=== PATIENT | female | born 1970 | race Caucasian/White ===

== ENCOUNTER 2024-06-22 11:41 | Emergency (ER) | payer OTHER ==
[2024-06-22 12:05] VITALS: BP 129/79; PULSE 70; TEMP 98.5; BMI 33.3
[2024-06-22] MEDS ORDERED: FAMOTIDINE 20 MG/50 ML IVPB 20 MG/50 ML MG IVPB ONE (12:39)
[2024-06-22] MEDS ORDERED: DEXAMETHASONE SOD PHOSPHATE 10 MG/1 ML VIAL ONE (12:39)
[2024-06-22] MEDS: FAMOTIDINE 20 MG/50 ML IVPB 20 MG/50 ML MG IVPB ONE (12:52)
[2024-06-22] MEDS: DEXAMETHASONE SOD PHOSPHATE 10 MG/1 ML VIAL IVPUSH ONE (12:52)
[2024-06-22 14:19] VITALS: RESP 16
[2024-06-23 00:20] LABS: HIV INTERPRETATION NEGATIVE (NEGATIVE)
== END 2024-06-22 14:20 | disposition home or self-care (01) ==
LOC: JER 11:41 → JERFT 11:41
PROC: 3E033GC Introduction of Other Therapeutic Substance into Peripheral Vein, Percutaneous Approach (ICD-10-PCS; principal; 2024-06-22)
PROC: 3E033GC Introduction of Other Therapeutic Substance into Peripheral Vein, Percutaneous Approach (ICD-10-PCS; 2024-06-22)
PROC: 3E033GC Introduction of Other Therapeutic Substance into Peripheral Vein, Percutaneous Approach (ICD-10-PCS; 2024-06-22)
DX: R21 Rash and other nonspecific skin eruption (principal); T78.1XXA Other adverse food reactions, not elsewhere classified, initial encounter; L29.9 Pruritus, unspecified
CPT/HCPCS: 36415; 86803; 87389; 99284-25; J1100

== ENCOUNTER 2024-09-16 20:35 | Emergency (ER) | payer OTHER ==
[2024-09-16 20:42] VITALS: BP 140/79; PULSE 92; RESP 18; TEMP 98.2; BMI 29.8
== END 2024-09-16 21:26 | disposition home or self-care (01) ==
LOC: JERFT 20:35
DX: H10.9 Unspecified conjunctivitis (principal)
CPT/HCPCS: 99283-25